=== PATIENT | male | born 1995 | race Caucasian/White ===

== ENCOUNTER 2021-03-03 23:46 | Emergency (ER) | payer SELFPAY ==
[~2021-03-03] VITALS: Ht 175.3 cm; Wt 72.6 kg
--- NOTE | 2021-03-03 23:48 | NUR ---
PT [employer] 61 AND [employer] FROM THE STREETS. C/O BIZARRE BEHAVIOR. WALKIN AROUND NAKED. PT PLACED IN BED 18 ON MONITOR AND PULSE OX. ER MD AT BEDSIDE FOR EVAL. AWAITING ORDERS.
[2021-03-04] MEDS: LORAZEPAM INJ 2 MG/ML VIAL IM ONE (00:02)
[2021-03-04] MEDS: diphenhydrAMINE HCL 50 MG/ML VIAL IM ONE (00:02)
[2021-03-04] MEDS: HALOPERIDOL LACTATE INJ 5 MG/ML VIAL IM ONE (00:02)
[2021-03-04] MEDS ORDERED: LORAZEPAM INJ 2 MG/ML VIAL ONE (00:08)
[2021-03-04] MEDS ORDERED: diphenhydrAMINE HCL 50 MG/ML VIAL ONE (00:08)
[2021-03-04] MEDS ORDERED: HALOPERIDOL LACTATE INJ 5 MG/ML VIAL ONE (00:08)
--- NOTE | 2021-03-04 02:05 | NUR ---
PT ASLEEP, REMAINS ON MONITOR AND PULSE OX.
--- NOTE | 2021-03-04 06:21 | NUR ---
REMAINS ASLEEP, VSS.
--- NOTE | 2021-03-04 09:17 | NUR ---
Patient discharged to home in stable condition. Written and verbal after care instructions given. Patient verbalizes understanding of instruction.
[2021-03-04 09:27] VITALS: BP 118/68
== END 2021-03-04 09:28 | disposition home or self-care (01) ==
LOC: ER 23:46 → EDBD 23:46 → ER 03-04 09:28
DX: R46.1 Bizarre personal appearance (principal); Z59.0 Homelessness
CPT/HCPCS: 96372 ×2; 99285; J1200; J1630; J2060